=== PATIENT | female | born 1950 | race Caucasian/White ===

== ENCOUNTER 2019-05-09 11:22 | Emergency (ER) | payer OTHER, SELFPAY ==
[2019-05-09 11:27] VITALS: BP 158/72; PULSE 115; RESP 16; TEMP 36.4; O2SAT 98
--- NOTE | 2019-05-09 12:03 | W.ED.GENAD ---
Discharge Plan Disposition Patient Disposition: HOME Condition: Fair Discharge Details Chief Complaint: RashLesion Clinical Impression: Shingles Primary Care Provider: Miesha Majano ED Provider: Brittanie Escalera Home Meds and New Rx's Prescriptions: New valacyclovir 1 gram tablet 1,000 mg PO TID Qty: 21 RF: 0 Continued alendronate 70 mg Tablet 70 mg PO .WEEKLY RF: 0 amitriptyline 25 mg Tablet 25 mg PO DAILY RF: 0 pravastatin 20 mg Tablet 20 mg PO DAILY RF: 0 losartan 100 mg Tablet 100 mg PO DAILY RF: 0 levothyroxine 100 mcg Capsule 100 mcg PO DAILY RF: 0 Discharge Instructions Instructions: Shingles (ED) Additional Instructions: Encourage hydration. Tylenol and/or ibuprofen as needed for discomfort. Please take valacyclovir as prescribed to help with your shingles infection. Please follow-up with primary care next week for reevaluation, call tomorrow to schedule appointment. If you develop fever/chills, increased pain, spreading redness, worsening of your symptoms or other new/worsening symptoms please seek care urgently once again. Referrals: Miesha Majano [Primary Care Provider] - Discharge Data Discharge Date/Time-TO BE ENTERED AT DEPARTURE: 05/09/19 12:17 Medical Decision Making <Bennett Eddy MD - Last Filed: 05/10/19 17:51> I examined the patient at request of KATHY Escalera. Exam consistent with shingles - likely c6 dermatome. I agree with evaluation and treatment plan as discussed with KATHY Escalera. Plan to treat with antiviral and have patient follow-up with PCP and dermatology. Patient verbalized understanding of need to contact PCP to arrange timely follow-up. Patient was encouraged to return to the ER for any worsening or new concerning symptoms. <KATHY Ramirez - Last Filed: 05/09/19 15:16> Patient is a 68-year-old female presents today with chief complaint of rash to left upper extremity. She reports that she first noticed this past 4 days ago after working outside. States that initially began on the anterior aspect of the wrist. Has since spread proximally. Patient has a well-defined stripe of vesicular rash moving up the anterior aspect of the forearm and wrapping posteriorly at the upper arm. No surrounding erythema or warmth. Patient is having minimal burning sensation. This does not appear to be consistent with a urticaria patient is not endorsing any itching. Rash is most concerning for shingles but does not follow a classic dermatomal distribution. I did ask Dr. Eddy to evaluate this who agrees with my end of diagnosis of shingles and feels that this is slightly unusual, it likely swelling the C6 dermatome. Patient will be treated with valacyclovir. We discussed signs and symptoms of a bacterial infection. She was given strict return precautions. We discussed topical options that may help with symptomatic management. I advised follow-up with primary care within the next week, she will call to schedule appointment. All of her questions and concerns were addressed and she is in agreement this plan. HPI <Bennett Eddy MD - Last Filed: 05/10/19 17:51> General Date/Time Provider Initiated Documentation: 05/09/19 11:49. Related Data Home Medications Medication Instructions Recorded Confirmed alendronate 70 mg PO .WEEKLY 05/09/19 05/09/19 amitriptyline 25 mg PO DAILY 05/09/19 05/09/19 levothyroxine 100 mcg PO DAILY 05/09/19 05/09/19 losartan 100 mg PO DAILY 05/09/19 05/09/19 pravastatin 20 mg PO DAILY 05/09/19 05/09/19 valacyclovir 1,000 mg PO TID #21 tab 05/09/19 Previous Rx's Medication Instructions Recorded valacyclovir 1,000 mg PO TID #21 tab 05/09/19 Allergies Allergy/AdvReac Type Severity Reaction Status Date / Time No Known Allergies Allergy Unverified 05/09/19 11:29 <KATHY Ramirez - Last Filed: 05/09/19 15:16> General Mode of arrival: ambulatory. Limitations to Documentation: no limitations. Information obtained by: patient and RN notes reviewed. History of Present Illness 68 year old F presents to the emergency department with the chief complaint of rash left arm, described as moderate, Quality is described as burning, and is localized to the left and upper extremity. Patient started experiencing this day(s) (4) and it has been constant. No relieving factors improve symptom(s), No exacerbating factors reported . Patient notes fever/chills (has had occassional chills) and rash; denies chest pain, diaphoresis, headaches, loss of appetite, malaise, nausea/vomiting, shortness of breath and weakness. General Stated Complaint: RashLesion GERRY: 4 <KATHY Ramirez - Last Filed: 05/09/19 15:16> Constitutional Reports as per HPI, Denies chills, Denies fever(s), Denies headache(s) and Denies weakness ENT Denies headache(s) Cardiovascular Reports as per HPI Respiratory Reports as per HPI and Denies cough Musculoskeletal Reports as per HPI and Denies tingling Integumentary/Breasts Reports as per HPI, Reports rash and Denies wounds Neurologic Reports as per HPI, Denies headache(s), Denies tingling, Denies paresthesias and Denies weakness [facility] <Bennett Eddy MD - Last Filed: 05/10/19 17:51> Social History Smoking/Tobacco Use Status: Never Alcohol Intake: never Substance use type: does not use <KATHY Ramirez - Last Filed: 05/09/19 15:16> Const General: cooperative, healthy appearing, comfortable, no acute distress, well developed and well groomed Nutritional Appearance: average body habitus and well nourished Orientation: alert and awake Chest Chest: normal inspection of the chest, no tenderness and No rash Resp Effort & Inspection: normal respiratory effort, able to speak in complete sentences and no respiratory distress Cardio Rate: regular rate Rhythm: regular rhythm Back/Spine/Pelvis Thoracic/Lumbar Spine: thoracic and lumbar spine normal to inspection (no rash) Skin Rashes: rashes noted (vesicular rash to the LUE, spares the hand, none onto shoulder) Neuro General: alert and awake Cognition: normal cognition Speech: speech normal Gait: normal gait Motor: muscle tone normal throughout Sensory Exam: no sensory deficits noted Extrem General: full ROM and normal capillary refill Left upper extremity: full ROM and normal capillary refill; abnormal to inspection (rash as above) Psych Appearance: grossly normal and well kempt Mental Status: mental status grossly normal Speech and Movement: speech and movement normal <KATHY Ramirez - Last Filed: 05/09/19 15:16> Vital Signs Temperature 36.4 C L 05/09/19 11:27 Pulse 115 H 05/09/19 11:27 Respiratory Rate 16 05/09/19 11:27 Blood Pressure 158/72 H 05/09/19 11:27 Pulse Oximetry 98 05/09/19 11:27 Temperature 36.4 C L 05/09/19 11:27 Temperature Source Skin 05/09/19 11:27 Pulse 115 H 05/09/19 11:27 Respiratory Rate 16 05/09/19 11:27 Respiratory Effort Non-Labored 05/09/19 11:27 Blood Pressure 158/72 H 05/09/19 11:27 Blood Pressure Position Sitting 05/09/19 11:27 Pulse Oximetry 98 05/09/19 11:27 Oxygen Delivery Method Room Air 05/09/19 11:27 Oxygen Flow Rate 0 05/09/19 11:27 Pain Level 7 05/09/19 11:27 Comment 05/09/19 11:27
[2019-05-09 12:04] VITALS: PULSE 99; TEMP 36.7; O2SAT 94
[2019-05-09 12:15] VITALS: BP 158/72; PULSE 99; RESP 16; TEMP 36.7; O2SAT 94
--- NOTE | 2019-05-09 12:19 | ED.GENADUL_ITS ---
Discharge Plan Disposition Patient Disposition: HOME Condition: Fair Discharge Details Chief Complaint: RashLesion Clinical Impression: Shingles Primary Care Provider: Miesha Majano ED Provider: Brittanie Escalera Home Meds and New Rx's Prescriptions: New valacyclovir 1 gram tablet 1,000 mg PO TID Qty: 21 RF: 0 Continued alendronate 70 mg Tablet 70 mg PO .WEEKLY RF: 0 amitriptyline 25 mg Tablet 25 mg PO DAILY RF: 0 pravastatin 20 mg Tablet 20 mg PO DAILY RF: 0 losartan 100 mg Tablet 100 mg PO DAILY RF: 0 levothyroxine 100 mcg Capsule 100 mcg PO DAILY RF: 0 Discharge Instructions Instructions: Shingles (ED) Additional Instructions: Encourage hydration. Tylenol and/or ibuprofen as needed for discomfort. Please take valacyclovir as prescribed to help with your shingles infection. Please follow-up with primary care next week for reevaluation, call tomorrow to schedule appointment. If you develop fever/chills, increased pain, spreading redness, worsening of your symptoms or other new/worsening symptoms please seek care urgently once again. Referrals: Miesha Majano [Primary Care Provider] - Discharge Data Discharge Date/Time-TO BE ENTERED AT DEPARTURE: 05/09/19 12:17 Medical Decision Making <Bennett Eddy MD - Last Filed: 05/10/19 17:51> I examined the patient at request of KATHY Escalera. Exam consistent with shingles - likely c6 dermatome. I agree with evaluation and treatment plan as discussed with KATHY Escalera. Plan to treat with antiviral and have patient follow-up with PCP and dermatology. Patient verbalized understanding of need to contact PCP to arrange timely follow-up. Patient was encouraged to return to the ER for any worsening or new concerning symptoms. <KATHY Ramirez - Last Filed: 05/09/19 15:16> Patient is a 68-year-old female presents today with chief complaint of rash to left upper extremity. She reports that she first noticed this past 4 days ago after working outside. States that initially began on the anterior aspect of the wrist. Has since spread proximally. Patient has a well-defined stripe of vesicular rash moving up the anterior aspect of the forearm and wrapping posteriorly at the upper arm. No surrounding erythema or warmth. Patient is having minimal burning sensation. This does not appear to be consistent with a urticaria patient is not endorsing any itching. Rash is most concerning for shingles but does not follow a classic dermatomal distribution. I did ask Dr. Eddy to evaluate this who agrees with my end of diagnosis of shingles and feels that this is slightly unusual, it likely swelling the C6 dermatome. Patient will be treated with valacyclovir. We discussed signs and symptoms of a bacterial infection. She was given strict return precautions. We discussed topical options that may help with symptomatic management. I advised follow-up with primary care within the next week, she will call to schedule appointment. All of her questions and concerns were addressed and she is in agreement this plan. HPI <Bennett Eddy MD - Last Filed: 05/10/19 17:51> General Date/Time Provider Initiated Documentation: 05/09/19 11:49 . Related Data Home Medications Medication Instructions Recorded Confirmed alendronate 70 mg PO .WEEKLY 05/09/19 05/09/19 amitriptyline 25 mg PO DAILY 05/09/19 05/09/19 levothyroxine 100 mcg PO DAILY 05/09/19 05/09/19 losartan 100 mg PO DAILY 05/09/19 05/09/19 pravastatin 20 mg PO DAILY 05/09/19 05/09/19 valacyclovir 1,000 mg PO TID #21 tab 05/09/19 Previous Rx's Medication Instructions Recorded valacyclovir 1,000 mg PO TID #21 tab 05/09/19 Allergies Allergy/AdvReac Type Severity Reaction Status Date / Time No Known Allergies Allergy Unverified 05/09/19 11:29 <KATHY Ramirez - Last Filed: 05/09/19 15:16> General Mode of arrival: ambulatory . Limitations to Documentation: no limitations . Information obtained by: patient and RN notes reviewed . History of Present Illness 68 year old F presents to the emergency department with the chief compl aint of rash left arm, described as moderate, Quality is described as burning, and is localized to the left and upper extremity. Patient started experiencing this day(s) (4) and it has been constant. No relieving factors improve symptom(s), No exacerbating factors reported . Patient notes fever/chills (has had occassional chills) and rash; denies chest pain, diaphoresis, headaches, loss of appetite, malaise, nausea/vomiting, shortness of breath and weakness. General Stated Complaint: RashLesion GERRY: 4 <KATHY Ramirez - Last Filed: 05/09/19 15:16> Constitutional Reports as per HPI, Denies chills, Denies fever(s), Denies headache(s) and Denies weakness ENT Denies headache(s) Cardiovascular Reports as per HPI Respiratory Reports as per HPI and Denies cough Musculoskeletal Reports as per HPI and Denies tingling Integumentary/Breasts Reports as per HPI, Reports rash and Denies wounds Neurologic Reports as per HPI, Denies headache(s), Denies tingling, Denies paresthesias and Denies weakness [facility] <Bennett Eddy MD - Last Filed: 05/10/19 17:51> Social History Smoking/Tobacco Use Status: Never Alcohol Intake: never Substance use type: does not use <KATHY Ramirez - Last Filed: 05/09/19 15:16> Const General: cooperative, healthy appearing, comfortable, no acute distress, well developed and well groomed Nutritional Appearance: average body habitus and well nourished Orientation: alert and awake Chest Chest: normal inspection of the chest, no tenderness and No rash Resp Effort & Inspection: normal respiratory effort, able to speak in complete sentences and no respiratory distress Cardio Rate: regular rate Rhythm: regular rhythm Back/Spine/Pelvis Thoracic/Lumbar Spine: thoracic and lumbar spine normal to inspection (no rash) Skin Rashes: rashes noted (vesicular rash to the LUE, spares the hand, none onto shoulder) Neuro General: alert and awake Cognition: normal cognition Speech: speech normal Gait: normal gait Motor: muscle tone normal throughout Sensory Exam: no sensory deficits noted Extrem General: full ROM and normal capillary refill Left upper extremity: full ROM and normal capillary refill; abnormal to inspection (rash as above) Psych Appearance: grossly normal and well kempt Mental Status: mental status grossly normal Speech and Movement: speech and movement normal <KATHY Ramirez - Last Filed: 05/09/19 15:16> Vital Signs Temperature 36.4 C L 05/09/19 11:27 Pulse 115 H 05/09/19 11:27 Respiratory Rate 16 05/09/19 11:27 Blood Pressure 158/72 H 05/09/19 11:27 Pulse Oximetry 98 05/09/19 11:27 Temperature 36.4 C L 05/09/19 11:27 Temperature Source Skin 05/09/19 11:27 Pulse 115 H 05/09/19 11:27 Respiratory Rate 16 05/09/19 11:27 Respiratory Effort Non-Labored 05/09/19 11:27 Blood Pressure 158/72 H 05/09/19 11:27 Blood Pressure Position Sitting 05/09/19 11:27 Pulse Oximetry 98 05/09/19 11:27 Oxygen Delivery Method Room Air 05/09/19 11:27 Oxygen Flow Rate 0 05/09/19 11:27 Pain Level 7 05/09/19 11:27 Comment 05/09/19 11:27
== END 2019-05-09 12:17 | disposition home or self-care (01) ==
PROVIDERS: Emergency Provider Physician Assistant; PCP Internal Medicine
DX: B02.9 Zoster without complications (principal)
CPT/HCPCS: 99283